=== PATIENT | female | born 1995 | race Caucasian/White ===

== ENCOUNTER 2021-04-05 19:17 | Emergency (ER) | payer OTHER, SELFPAY ==
[2021-04-05 19:18] VITALS: BP 130/76; PULSE 94; RESP 16; TEMP 36.7; O2SAT 98; BMI 29.1
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
[2021-04-05] MEDS: KETOROLAC 30 MG/ML VIAL IM (20:15)
[2021-04-05] MEDS: CYCLOBENZAPRINE 10 MG PREPACK 1 BOTTLE MISC (21:28)
[2021-04-05 21:30] VITALS: BP 118/75; PULSE 80; RESP 16; O2SAT 100
== END 2021-04-05 21:34 | disposition home or self-care (01) ==
PROVIDERS: Emergency Provider Emergency Medicine
DX: S16.1XXA Strain of muscle, fascia and tendon at neck level, initial encounter (principal); V89.2XXA Person injured in unspecified motor-vehicle accident, traffic, initial encounter
CPT/HCPCS: 72125; 73030; 81025; 96372; 99284; J1885

== ENCOUNTER 2022-02-26 05:07 | Emergency (ER) | payer OTHER, SELFPAY ==
--- NOTE | 2022-02-26 05:11 | ED_ITS ---
HPI - Back Pain/Injury General Chief Complaint: Back Pain/Injury Stated Complaint: severe lower back pain shooting lower right leg Time Seen by Provider: 02/26/22 05:11 History of Present Illness HPI Narrative: 26F nonsmoker without any significant medical problem presents with her signi ficant other and a chief complaint of gradually worsening low back pain with radiation down her right leg over the past few days. She denies any specific traumatic event but states that [place] and symptoms started ramping up a few days ago. She is had increased severity each night and was awoken this morning at about 2:00 a.m. with severe pain as stated. Her discomfort is significantly worse when she moves and improves with rest. She denies any fever or chills and takes no blood thinners. She has not lost control of her bowel or bladder and denies any lower extremity weakness or foot drop Related Data Previous Rx's Medication Instructions Recorded cyclobenzaprine 5 mg tablet 5 mg PO TID PRN muscle spasm #10 04/05/21 tabs cyclobenzaprine 10 mg tablet 10 mg PO TID PRN muscle spasm #14 02/26/22 tabs gabapentin 300 mg capsule 300 mg PO BEDTIME #14 caps 02/26/22 hydrocodone 5 mg-acetaminophen 325 1 tab PO Q4-6H PRN pain #10 tabs 02/26/22 mg tablet ketorolac 10 mg tablet 10 mg PO Q6H PRN pain #14 tabs 02/26/22 methylprednisolone 4 mg tablets in See Rx Instructions PO .COMPLEX 02/26/22 a dose pack (Medrol (Beck)) #21 ea Allergies Allergy/AdvReac Type Severity Reaction Status Date / Time No Known Drug Allergies Allergy Verified 04/05/21 19:29 Review of Systems Review of Systems Narrative: GENERAL: Denies chills, fatigue, malaise, fever, sweats. HEENT: Denies sinus pain, ear pain, sore throat, difficulty swallowing, dizziness. RESPIRATORY: Denies dyspnea, cough, wheezing, hemoptysis, sputum. CARDIOVASCULAR: Denies chest pain, palpitations, orthopnea, edema, GASTROINTESTINAL: Denies nausea, vomiting, abdominal pain, diarrhea, constipation, melena. : Denies dysuria, frequency, incontinence, hematuria, urinary retention. MUSCULOSKELETAL: See HPI SKIN: Denies rash, skin lesions, or other NEUROLOGIC: See HPI PSYCHIATRIC: No concerning psychosocial issues. 12 point review of systems is negative except for those stated above Patient History Social History Smoking Status: Never smoker Smoking Status: Never smoker alcohol intake frequency: 0-2 drinks per day Substance Use Type: does not use Exam Narrative Exam Narrative: GENERAL: [26] year old patient appears stated age. Well-developed patient, in mild distress. Obviously in pain walking with antalgic gait HEAD: Atraumatic. Normocephalic. EYES: Pupils equal round and reactive. Extraocular motions intact. No scleral icterus. No injection or drainage. ENT: Nose without bleeding, purulent drainage. Throat without erythema, tonsillar hypertrophy or exudate. Airway patent. NECK: Trachea midline. Non tender CARDIOVASCULAR: Regular rate and rhythm without murmurs, gallops, or rubs. RESPIRATORY: Clear to auscultation. Breath sounds equal bilaterally. No wheezes, rales, or rhonchi. GASTROINTESTINAL: Abdomen soft, non-tender, nondistended. EXTREMITIES: No edema or joint tenderness. BACK: peel oven tender but free of any obvious external abnormalities. Patient exam notes decreased range of motion and muscle spasm, but no CVA tenderness, or vertebral point tenderness. There are no symptoms of cauda equina such as saddle anesthesia, and decreased reflexes, decreased sensation or strength. NEURO: AOx3. SKIN: No rash or erythema of visible areas Initial Vital Signs Initial Vital Signs: Vital Signs Temperature 98.7 F 02/26/22 05:16 Pulse Rate 89 02/26/22 05:16 Respiratory Rate 16 02/26/22 05:16 Blood Pressure 148/79 H 02/26/22 05:16 Pulse Oximetry 98 02/26/22 05:16 Oxygen Delivery Method 02/26/22 05:16 Course Orders Ordered: Discontinued Medications Cyclobenzaprine HCl (Cyclobenzaprine 10 Mg Prepack) 1 bottle MISC SEEINSTR ONE Stop: 02/26/22 05:45 Gabapentin (Gabapentin 300 Mg Capsule) 300 mg PO NOW ONE Stop: 02/26/22 05:45 Ketorolac Tromethamine (Ketorolac 30 Mg/Ml Vial) 30 mg IM NOW ONE Stop: 02/26/22 05:45 Prednisone (Prednisone 20 Mg Tablet) 40 mg PO NOW ONE Stop: 02/26/22 05:45 Vital Signs Vital signs: Vital Signs - 8 hr 02/26/22 05:16 Temperature 98.7 F Pulse Rate 89 Respiratory Rate 16 Blood Pressure 148/79 H Pulse Oximetry 98 Oxygen Delivery Method Room Air MDM - Back Pain/Injury Lab Data Labs: Point of Care Testing Test Results Negative Urine Dip Bedside Urine Glucose Negative Bedside Urine Bilirubin - Negative Bedside Urine Ketone - Negative Urine Specific [place] 1.020 Bedside Urine Occult Blood - Negative Bedside Urine pH 6.0 Bedside Urine Protein - Negative Bedside Urine Urobilinogen - Negative Bedside Urine Nitrite - Negative Bedside Urine Leukocytes - Negative Esterase MDM Narrative Medical decision making narrative: Multiple etiologies of back pain considered including; Epidural abscess, cauda equina, mass occupying lesion, and other considered, however no red flag symptoms consistent with neurosurgical emergency are readily apparent. We discussed Discharge Plan Departure Patient Disposition: Home Clinical Impression: Acute back pain with radiculopathy Instructions: DI for Lumbar Radiculopathy Activity Restrictions/Additional Instructions: *You have been diagnosed with [acute lumbar radiculopathy] *What to do: *Please continue to take your regular medications as directed. [x ] New medication prescriptions sent to your pharmacy: [[facility] ] [ ] New medication written as a paper prescription [ ] No new medications given *Please follow up with your primary care provider in 2-3 days, call for an appointment. Let them know you were seen in the Emergency Department and that we ask that you be seen in follow up. We will electronically transmit a record of today's note if your PCP is in our system *If you do not have a primary care provider please contact the [facility] Resource line at [phone]. They will ask some questions about your medical history and help get you set up with a doctor in the community. *Return to Emergency Department if you should have any new, worsening or concerning symptoms, such as [fever greater than 101 F, shaking chills, worsening pain, persistent vomiting or other bothersome symptoms] Prescriptions: New cyclobenzaprine 10 mg tablet 10 mg PO TID PRN (Reason: muscle spasm) Qty: 14 0RF hydrocodone-acetaminophen 5-325 mg tablet 1 tab PO Q4-6H PRN (Reason: pain) Qty: 10 0RF ketorolac 10 mg tablet 10 mg PO Q6H PRN (Reason: pain) Qty: 14 0RF gabapentin 300 mg capsule 300 mg PO BEDTIME Qty: 14 0RF methylprednisolone [Medrol (Beck)] 4 mg tablets,dose pack See Rx Instructions .ROUTE .COMPLEX Qty: 21 0RF Rx Instructions: orally per package directions No Action cyclobenzaprine 5 mg tablet 5 mg PO TID PRN (Reason: muscle spasm) Qty: 10 0RF Referrals: Katy Kapadia PA-C [Primary Care Provider] -
[2022-02-26 05:16] VITALS: BP 148/79; PULSE 89; RESP 16; TEMP 37.1; O2SAT 98; BMI 28.3
[2022-02-26] MEDS: CYCLOBENZAPRINE 10 MG PREPACK 1 BOTTLE MISC (05:59)
[2022-02-26] MEDS: HYDROCODONE/ACET 5/325 PREPACK 1 BOTTLE MISC (05:59)
[2022-02-26] MEDS: GABAPENTIN 300 MG CAPSULE PO (05:59)
[2022-02-26] MEDS: predniSONE 20 MG TABLET 40 MG PO (05:59)
[2022-02-26] MEDS: KETOROLAC 30 MG/ML VIAL IM (06:00)
[2022-02-26 06:50] VITALS: BP 125/69; PULSE 71; RESP 18; O2SAT 99
== END 2022-02-26 06:51 | disposition home or self-care (01) ==
PROVIDERS: Emergency Provider Emergency Medicine; PCP Physician Assistant Medical
DX: M54.16 Radiculopathy, lumbar region (principal)
CPT/HCPCS: 81003; 81025; 96372; 99283; J1885

== ENCOUNTER 2024-07-12 19:09 | Emergency (ER) | payer OTHER, SELFPAY ==
[2024-07-12] VITALS (7 sets, daily range): BP systolic 123–126; BP diastolic 76–95; PULSE 77–92; RESP 16–21; TEMP 36.3; O2SAT 97–100; BMI 30.7
--- NOTE | 2024-07-12 19:26 | EKG_ITS ---
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
--- NOTE | 2024-07-12 19:34 | ED_ITS ---
HPI - Nausea/Vomiting/Diarrhea General Chief complaint: Nausea/Vomiting/Diarrhea Stated complaint: Low Potassium, Elevated Lipase Time Seen by Provider: 07/12/24 19:16 Source: patient Mode of arrival: Ambulatory History of Present Illness HPI Narrative: 28-year-old female presents for evaluation of abnormal labs. She reports 5-6 days of nausea, vomiting, diarrhea. She was seen 2 days ago at [facility], where she received fluids and blood work. She was subsequently discharged home. She states that for about 24 hours she felt improved but had diarrhea again today. She called her doctor's office, who reviewed her labs from [place] and told her to come into the ER for low potassium and elevated lipase, concern for pancreatitis. Patient denies alcohol use, cigarette smoking, or even abdominal pain. States that she feels like she was very fatigued and overall with a brain fog. Related Data Previous Rx's Medication Instructions Recorded cyclobenzaprine 5 mg tablet 5 mg PO TID PRN muscle spasm #10 04/05/21 tabs cyclobenzaprine 10 mg tablet 10 mg PO TID PRN muscle spasm #14 02/26/22 tabs gabapentin 300 mg capsule 300 mg PO BEDTIME #14 caps 02/26/22 hydrocodone 5 mg-acetaminophen 325 1 tab PO Q4-6H PRN pain #10 tabs 02/26/22 mg tablet ketorolac 10 mg tablet 10 mg PO Q6H PRN pain #14 tabs 02/26/22 methylprednisolone 4 mg tablets in See Rx Instructions PO .COMPLEX 02/26/22 a dose pack (Medrol (Beck)) #21 ea Allergies Allergy/AdvReac Type Severity Reaction Status Date / Time No Known Drug Allergies Allergy Verified 04/05/21 19:29 Patient History Social History Smoking Status: Never smoker Smoking Status: Never smoker alcohol intake frequency: 0-2 drinks per day Exam Initial Vital Signs Initial Vital Signs: Vital Signs Temperature 97.4 F L 07/12/24 19:15 Pulse Rate 92 H 07/12/24 19:15 Respiratory Rate 20 07/12/24 19:15 Blood Pressure 123/80 07/12/24 19:15 Pulse Oximetry 100 07/12/24 19:15 Oxygen Delivery Method Room Air 07/12/24 19:15 Const: Awake, alert, no acute distress, nontoxic appearing Cardiac: regular rate, regular rhythm RESP: unlabored, clear bilaterally, no wheezing GI: Soft, nontender, nondistended Skin: Warm, Dry, intact, no rashes Neuro: AO x3, CN II-XII grossly intact, moves all extremities Course Orders Ordered: ED Orders 07/12/24 19:26 EKG-12 Lead Stat 07/12/24 19:37 CBC Auto Diff [Complete Blood Count AUTO DIFF] Stat CMP [Comprehensive Metabolic Panel] Stat Lactate (Lactic Acid) Stat Lipase Stat MAG [Magnesium] Stat 07/12/24 19:42 GI Panel (Film Array) Stat UA Complete [Urinalysis and Microscopic] Stat Vital Signs Vital signs: Vital Signs - 8 hr 07/12/24 19:15 07/12/24 19:59 07/12/24 20:00 Temperature 97.4 F L Pulse Rate 92 H 88 Respiratory Rate 20 20 Blood Pressure 123/80 126/95 H Pulse Oximetry 100 97 Oxygen Delivery Method Room Air 07/12/24 20:00 07/12/24 20:33 07/12/24 21:00 Temperature Pulse Rate 81 83 86 Respiratory Rate 21 18 Blood Pressure Pulse Oximetry 97 98 98 Oxygen Delivery Method 07/12/24 21:30 07/12/24 21:36 07/12/24 21:36 Temperature Pulse Rate 79 77 Respiratory Rate 16 18 Blood Pressure 123/76 Pulse Oximetry 99 Oxygen Delivery Method MDM - Nausea/Vomiting/Diarrhea Differential Diagnosis Differential diagnosis: Likely traveler's diarrhea, gastroenteritis and dehydration Lab Data 07/12/24 19:37 07/12/24 19:37 Labs: Lab Results 07/12/24 07/12/24 Range/Units 19:37 19:42 WBC 8.1 (4.5-11.0) X10^3/uL RBC 4.91 (4.0-5.2) X10^6/uL Hgb 14.4 (12.0-16.0) g/dL Hct 42.8 (36-46) % MCV 87.2 (80-100) fL MCH 29.3 (26-34) PG MCHC 33.6 (30-36) % RDW 12.9 (11.6-14.8) % Plt Count 318 (150-400) X10^3/uL Neut % (Auto) 60.1 (50-75) % Lymph % (Auto) 25.2 (25-40) % [place] % (Auto) 13.2 (3-14) % Eos % (Auto) 1.1 L (2-4) % Baso % (Auto) 0.4 (0-2) % Neut # (Auto) 4900 (1920-1376) /uL Lymph # (Auto) 2100 (6365-6607) /uL [place] # (Auto) 1100 H (0-900) /uL Eos # (Auto) 100 (0-450) /uL Baso # (Auto) 0 (0-100) /uL Sodium 135 L (137-145) mmol/L Potassium 3.6 (3.4-5.1) mmol/L Chloride 103 (98-107) mmol/L Carbon Dioxide 25 (22-32) mmol/L BUN 7 (7-17) mg/dL Creatinine 0.63 (0.52-1.04) mg/dL Estimated GFR > 60 (>60) mL/min BUN/Creatinine Ratio 11.1 (6-22) Glucose 93 (70-100) mg/dL Lactate 0.7 (0.7-2.1) mmol/L Calcium 8.8 (8.4-10.2) mg/dL Magnesium 2.0 (1.6-2.3) mg/dL Total Bilirubin 0.9 (0.2-1.3) mg/dL AST 117 H (14-36) IU/L ALT 158 H (<35) IU/L Alkaline Phosphatase 87 (38-126) U/L Total Protein 7.4 (6.3-8.2) g/dL Albumin 4.3 (3.5-5.0) g/dL Globulin 3.1 (1.7-4.1) g/dL Albumin/Globulin Ratio 1.4 (1.0-2.8) Lipase 133 (23-300) U/L Urine Color Yellow Urine Appearance Clear Urine pH 6.5 (4.5-8.0) Ur Specific [place] <=1.005 (1.000-1.035) Urine Protein Negative (Negative) Urine Glucose (UA) Negative (Negative) g/dL Urine Ketones Negative (NEGATIVE) Urine Occult Blood Negative (Negative) Urine Nitrate Negative (Negative) Urine Bilirubin Negative (NEGATIVE) Urine Urobilinogen 0.2 (0.2) E.U./dL Ur Leukocyte Esterase Negative (NEGATIVE) Urine RBC 0-1/hpf (0-5/HPF) Urine WBC 0-1/hpf (0-5/HPF) Ur Squamous Epith Cells 0-1 /hpf (0-5/HPF) Urine Bacteria Occasional (0-1) (None) Ur Culture Indicated? Cult not indicated Vol Urine Centrifuged 10ml (spun) Stl C. cayetanensis PCR Not detected (Not Detect) Stool Rotavirus (PCR) Not detected (Not Detect) Stool Adenovirus (PCR) Detected (Not Detect) Stool Astrovirus (PCR) Not detected (Not Detect) Stool Cryptosporidium PCR Not detected (Not Detect) Stl E.coli Shiga Tox PCR Not detected (Not Detect) St Sh/Enteroin Ecoli PCR Not detected (Not Detect) Stl Enterotoxigenic E PCR Not detected (Not Detect) Stool EPEC (PCR) Not detected (Not Detect) Stl E. histolytica PCR Not detected (Not Detect) Stool Giardia Lamblia PCR Not detected (Not Detect) Stool Sapovirus (PCR) Not detected (Not Detect) Stl P. shigelloides PCR Not detected (Not Detect) St Y.enterocolitica PCR Not detected (Not Detect) Stool Vibrio (PCR) Not detected (Not Detect) Stl Vibrio cholerae PCR Not detected (Not Detect) Stl Enteroaggr Ecoli PCR Not detected (Not Detect) Stl Norovirus GI/GII PCR Not detected (Not Detect) Campylobacter (PCR) Not detected (Not Detect) C. difficile Tox (PCR) Not detected (Not Detect) Salmonella (PCR) Not detected (Not Detect) MDM Narrative Medical decision making narrative: Well appearing patient with the above symptoms. We were able to obtain records from [facility], that showed a potassium of 3.4 and a lipase of 54, which are barely outside the assay limit range of normal. Abdomen soft, nontender to palpation. I have no clinical suspicion for pancreatitis at this time. Repeat laboratory work shows normal potassium and normal lipase. Patient was noted to have mild transaminitis on her last visit, which is stable today (AST 131, ALT 152 on 07/10 at [facility], AST 117 adn ALT 158 today). GI panel positive for adenovirus. So this is likely viral gastroenteritis and should be resolving within the next several days. Patient informed of lab results and GI panel results. She was advised to continue to stay hydrated and drink plenty of fluids. She was Zofran at home it was prescribed at her last ER visit. She was informed of her stable liver enzymes and encouraged PCP follow up once her GI illness and to make sure that her liver enzymes go back to normal. Discharge Plan Departure Patient Disposition: Home Clinical Impression: Gastroenteritis Instructions: DI for Viral Gastroenteritis -- Adult Activity Restrictions/Additional Instructions: Your laboratory work today showed a normal lipase and normal potassium. Your liver enzymes are still elevated, but not much different than when you were at [place]. Your stool panel was positive for adenovirus, which is an upper respiratory virus that can cause diarrhea. This is usually self-limiting and I anticipate that your symptoms will get better over the next several days. Use the Zofran you were previously prescribed for nausea and vomiting. Make sure that you stay hydrated and drink plenty of fluids. Prescriptions: No Action cyclobenzaprine 5 mg tablet 5 mg PO TID PRN (Reason: muscle spasm) Qty: 10 0RF cyclobenzaprine 10 mg tablet 10 mg PO TID PRN (Reason: muscle spasm) Qty: 14 0RF hydrocodone-acetaminophen 5-325 mg tablet 1 tab PO Q4-6H PRN (Reason: pain) Qty: 10 0RF ketorolac 10 mg tablet 10 mg PO Q6H PRN (Reason: pain) Qty: 14 0RF gabapentin 300 mg capsule 300 mg PO BEDTIME Qty: 14 0RF methylprednisolone [Medrol (Beck)] 4 mg tablets,dose pack See Rx Instructions .ROUTE .COMPLEX Qty: 21 0RF Rx Instructions: orally per package directions Referrals: Katy Kapadia PA-C [Primary Care Provider] - Stand Alone Forms: Patient Portal/API/Survey, Work Release Note
[2024-07-12 19:55] LABS: Add Manual Diff / Slide Review NO; Basophils Absolute Auto 0 /uL (0-100); Basophils Percent Auto 0.4 % (0-2); Eosinophils Absolute Auto 100 /uL (0-450); Eosinophils Percent Auto 1.1 % (2-4); Hematocrit 42.8 % (36-46); Hemoglobin 14.4 g/dL (12.0-16.0); Lymphocytes Absolute Auto 2100 /uL (1100-4500); Lymphocytes Percent Auto 25.2 % (25-40); Mean Corpuscular HGB Conc 33.6 % (30-36); Mean Corpuscular Hemoglobin 29.3 PG (26-34); Mean Corpuscular Volume 87.2 fL (80-100); Monocytes Absolute Auto 1100 /uL (0-900); Monocytes Percent Auto 13.2 % (3-14); Neutrophils Absolute Auto 4900 /uL (1500-7000); Neutrophils Percent Auto 60.1 % (50-75); Platelet Count 318 X10^3/uL (150-400); Red Blood Cell Count 4.91 X10^6/uL (4.0-5.2); Red Cell Distribution Width 12.9 % (11.6-14.8); White Blood Cell Count 8.1 X10^3/uL (4.5-11.0)
[2024-07-12 19:57] LABS: Appearance Urine UA CLEAR; Bilirubin Urine UA NEGATIVE (NEGATIVE); Color Urine UA YELLOW; Glucose Urine UA NEGATIVE (Negative); Ketones Urine UA NEGATIVE (NEGATIVE); Leukocyte Esterase Urine UA NEGATIVE (NEGATIVE); Nitrite Urine UA NEGATIVE (Negative); Occult Blood Urine UA NEGATIVE (Negative); Protein Urine UA NEGATIVE (Negative); Specific Gravity Urine UA <=1.005 (1.000-1.035); Urobilinogen Urine UA 0.2 E.U./dL (0.2)
[2024-07-12 20:00] LABS: pH Urine UA 6.5 (4.5-8.0)
[2024-07-12 20:05] LABS: Bacteria Urine Occasional (0-1); Culture Indicated Urine Cult Not Indicated; RBC Urine 0-1/HPF (0-5/HPF); Squamous Epithelial Cell Urine 0-1 /HPF (0-5/HPF); Urine Volume 10mL (spun); WBC Urine 0-1/HPF (0-5/HPF)
[2024-07-12 20:10] LABS: Lactate (Lactic Acid) 0.7 mmol/L (0.7-2.1)
[2024-07-12 20:11] LABS: Alanine Aminotransferase 158 IU/L (<35); Albumin 4.3 g/dL (3.5-5.0); Albumin Globulin Ratio 1.4 (1.0-2.8); Alkaline Phosphatase 87 U/L (38-126); Aspartate Aminotransferase 117 IU/L (14-36); BUN Creatinine Ratio 11.1 (6-22); Bilirubin Total 0.9 mg/dL (0.2-1.3); Blood Urea Nitrogen 7 mg/dL (7-17); Calcium 8.8 mg/dL (8.4-10.2); Carbon Dioxide 25 mmol/L (22-32); Chloride 103 mmol/L (98-107); Estimated Glomerular Filt Rate > 60 mL/min (>60); Globulin 3.1 g/dL (1.7-4.1); Glucose 93 mg/dL (70-100); HEMOLYSIS 22 (0-50); Lipase 133 U/L (23-300); Potassium 3.6 mmol/L (3.4-5.1); Sodium 135 mmol/L (137-145); Total Protein 7.4 g/dL (6.3-8.2)
[2024-07-12 21:15] LABS: Adenovirus F 40/41 Detected (Not Detect); Astrovirus Not Detected (Not Detect); Campylobacter Not Detected (Not Detect); Clostridium difficile toxin AB Not Detected (Not Detect); Cryptosporidium Not Detected (Not Detect); Cyclospora cayetanensis Not Detected (Not Detect); Entamoeba histolytica Not Detected (Not Detect); Enteroaggregative E.coli Not Detected (Not Detect); Enteropathogenic E.coli Not Detected (Not Detect); Enterotoxigenic E.coli It/st Not Detected (Not Detect); Giardia lamblia Not Detected (Not Detect); Norovirus GI/GII Not Detected (Not Detect); Plesiomonsa shigelloides Not Detected (Not Detect); Rotavirus A Not Detected (Not Detect); Salmonella Not Detected (Not Detect); Sapovirus Not Detected (Not Detect); Shiga-like toxin-prod E.coli Not Detected (Not Detect); Shigella/Enteroinvasive E.coli Not Detected (Not Detect); Vibrio Not Detected (Not Detect); Vibrio cholerae Not Detected (Not Detect); Yersinia enterocolitica Not Detected (Not Detect)
== END 2024-07-12 21:43 | disposition home or self-care (01) ==
PROVIDERS: Emergency Provider Emergency Medicine; PCP Physician Assistant Medical
DX: K52.9 Noninfective gastroenteritis and colitis, unspecified (principal); R07.9 Chest pain, unspecified
CPT/HCPCS: 36415; 80053; 81001; 83605; 83690; 83735; 85025; 87507; 93005; 99283; 99284

== ENCOUNTER 2024-10-11 10:46 | Emergency (ER) | payer OTHER, SELFPAY ==
[2024-10-11 10:50] VITALS: BP 116/77; PULSE 86; RESP 13; TEMP 36.1; O2SAT 99; BMI 31.6
[2024-10-11 11:23] LABS: Ictotest Urine Negative (Negative)
--- NOTE | 2024-10-11 12:30 | ED_ITS ---
HPI - Back Pain/Injury <Brandy Barrios PA-C - Last Filed: 10/11/24 14:39> General Chief Complaint: Back Pain/Injury Stated Complaint: Back pain Time Seen by Provider: 10/11/24 11:27 Source: patient History of Present Illness HPI Narrative: 29-year-old female presents to the ED with 2 days of muscle spasms and pain in the right lower back, with pain traveling down her right leg. Patient denies numbness, tingling, weakness. No saddle paresthesias. No fever, chills. No urinary hesitancy, urinary incontinence, bowel incontinence. No footdrop. Patient states that she tried to sampler pickup her child yesterday when her pain was exacerbated. Patient endorses that she has had several flares of this back pain periodically over the last several years. Related Data Previous Rx's Medication Instructions Recorded cyclobenzaprine 5 mg tablet 5 mg PO TID PRN muscle spasm #10 04/05/21 tabs cyclobenzaprine 10 mg tablet 10 mg PO TID PRN muscle spasm #14 02/26/22 tabs gabapentin 300 mg capsule 300 mg PO BEDTIME #14 caps 02/26/22 hydrocodone 5 mg-acetaminophen 325 1 tab PO Q4-6H PRN pain #10 tabs 02/26/22 mg tablet ketorolac 10 mg tablet 10 mg PO Q6H PRN pain #14 tabs 02/26/22 methylprednisolone 4 mg tablets in See Rx Instructions PO .COMPLEX 02/26/22 a dose pack (Medrol (Beck)) #21 ea cyclobenzaprine 10 mg tablet 10 mg PO TID PRN muscle spasm 5 10/11/24 days #15 tabs Allergies Allergy/AdvReac Type Severity Reaction Status Date / Time No Known Drug Allergies Allergy Verified 10/11/24 10:50 Review of Systems <Brandy Barrios PA-C - Last Filed: 10/11/24 14:39> Constitutional Constitutional: Denies chills, Denies fatigue, Denies fever(s), Denies frequent falls, Denies lethargy and Denies weakness Eyes Eyes: Denies change in vision, Denies eye discharge, Denies irritation and Denies loss of vision ENT Ears, Nose, Mouth, and Throat: Denies change in voice, Denies dizziness, Denies neck pain, Denies sore throat and Denies throat swelling Cardiovascular Cardiovascular: Denies chest pain, Denies irregular heart rhythm, Denies lightheadedness, Denies palpitations, Denies dyspnea, Denies dyspnea on exertion and Denies orthopnea Respiratory Respiratory: Denies cough, Denies dyspnea, Denies dyspnea on exertion and Denies wheezing Gastrointestinal Gastrointestinal: Denies abdominal pain, Denies change in bowel habits, Denies diarrhea, Denies nausea and Denies vomiting Musculoskeletal Musculoskeletal: Reports back pain, Denies neck pain, Denies numbness and Reports radiating pain into limb Integumentary/Breasts Skin/Breast: Denies pruritus, Denies erythema, Denies rash and Denies wounds Neurologic Neurologic: Denies behavioral changes, Denies confusion, Denies dizziness, Denies frequent falls, Denies loss of vision, Denies numbness and Denies weakness Psychiatric Psychiatric: Denies anxiety, Denies behavioral changes, Denies confusion, Denies depression, Denies homicidal ideation and Denies suicidal ideation Endocrine Endocrine: Denies fatigue, Denies flushing and Denies palpitations Hematologic/Lymphatic Hematologic/Lymphatic: Denies easy bruising Allergic/Immunologic Allergic/Immunologic: Denies urticaria, Denies throat swelling and Denies wheezing Patient History <Brandy Barrios PA-C - Last Filed: 10/11/24 14:39> Social History Smoking Status: Never smoker Smoking Status: Never smoker alcohol intake frequency: 0-2 drinks per day Exam <Brandy Barrios PA-C - Last Filed: 10/11/24 14:39> Narrative Exam Narrative: Const General:?cooperative, healthy appearing and comfortable [facility] Head:?normal to inspection Ears:?hearing grossly normal bilaterally Nose:?external nose normal Face and sinus:?normal facial exam and sinuses nontender Mouth:?oral mucosae normal Throat:?posterior oropharynx normal Eyes General:?appearance normal, both eyes and all related structures Neck Neck:?normal visual inspection and no lymphadenopathy noted Resp Effort & Inspection:?normal respiratory effort Auscultation:?clear to auscultation bilaterally Cardio Rate:?regular rate Rhythm:?regular rhythm Musculoskeletal No midline tenderness to palpation. No paraspinal tenderness to palpation. Patient is able to walk, although painful. Neurovascularly intact. Neuro General:?patient alert, patient awake and patient oriented x3 Initial Vital Signs Initial Vital Signs: Vital Signs Temperature 97.0 F L 10/11/24 10:50 Pulse Rate 86 10/11/24 10:50 Respiratory Rate 13 10/11/24 10:50 Blood Pressure 116/77 10/11/24 10:50 Pulse Oximetry 99 10/11/24 10:50 Oxygen Delivery Method Room Air 10/11/24 10:50 <Kulwinder Tan MD - Last Filed: 10/12/24 07:48> Initial Vital Signs Initial Vital Signs: Vital Signs Temperature 97.0 F L 10/11/24 10:50 Pulse Rate 86 10/11/24 10:50 Respiratory Rate 13 10/11/24 10:50 Blood Pressure 116/77 10/11/24 10:50 Pulse Oximetry 99 10/11/24 10:50 Oxygen Delivery Method Room Air 10/11/24 10:50 Course <Brandy Barrios PA-C - Last Filed: 10/11/24 14:39> Orders Ordered: Discontinued Medications Acetaminophen (Acetaminophen 325 Mg Tablet) 975 mg PO NOW ONE Stop: 10/11/24 12:42 Last Admin: 10/11/24 12:51 Dose: 975 mg Documented By: YINA Cyclobenzaprine HCl (Cyclobenzaprine 10 Mg Tablet) 10 mg PO NOW ONE Stop: 10/11/24 12:42 Last Admin: 10/11/24 12:51 Dose: 10 mg Documented By: YINA Ketorolac Tromethamine (Ketorolac 30 Mg/Ml Vial) 30 mg IM NOW ONE Stop: 10/11/24 12:42 Last Admin: 10/11/24 12:51 Dose: 30 mg Documented By: YINA Vital Signs Vital signs: Vital Signs - 8 hr 10/11/24 10:50 Temperature 97.0 F L Pulse Rate 86 Respiratory Rate 13 Blood Pressure 116/77 Pulse Oximetry 99 Oxygen Delivery Method Room Air <Kulwinder Tan MD - Last Filed: 10/12/24 07:48> Orders Ordered: Discontinued Medications Acetaminophen (Acetaminophen 325 Mg Tablet) 975 mg PO NOW ONE Stop: 10/11/24 12:42 Last Admin: 10/11/24 12:51 Dose: 975 mg Documented By: YINA Cyclobenzaprine HCl (Cyclobenzaprine 10 Mg Tablet) 10 mg PO NOW ONE Stop: 10/11/24 12:42 Last Admin: 10/11/24 12:51 Dose: 10 mg Documented By: YINA Ketorolac Tromethamine (Ketorolac 30 Mg/Ml Vial) 30 mg IM NOW ONE Stop: 10/11/24 12:42 Last Admin: 10/11/24 12:51 Dose: 30 mg Documented By: YINA Vital Signs Vital signs: Vital Signs - 8 hr 10/11/24 10:50 Temperature 97.0 F L Pulse Rate 86 Respiratory Rate 13 Blood Pressure 116/77 Pulse Oximetry 99 Oxygen Delivery Method Room Air MDM - Back Pain/Injury <Brandy Barrios PA-C - Last Filed: 10/11/24 14:39> Lab Data Labs: Lab Results 10/11/24 Range/Units 10:54 Ur Bilirubin Confirm Negative (Negative) Point of Care Testing Test Results Negative Urine Dip Bedside Urine Glucose Negative Bedside Urine Bilirubin + 1 Bedside Urine Ketone - Negative Urine Specific [place] 1.025 Bedside Urine Occult Blood - Negative Bedside Urine pH 6.0 Bedside Urine Protein +/- 15 Bedside Urine Urobilinogen - Negative Bedside Urine Nitrite - Negative Bedside Urine Leukocytes - Negative Esterase MDM Narrative Medical decision making narrative: 29-year-old female presents to the ED with 2 days of muscle spasms and pain in the right lower back, with pain traveling down her right leg. Physical exam is reassuring for no midline tenderness to palpation. Patient appears neurologically and neurovascularly intact. No saddle paresthesias, urinary hesitancy. Patient given a dose of Toradol, Tylenol, Flexeril. Prescribed Flexeril. Recommend continuing Tylenol, ibuprofen at home. Recommend lidocaine patches, heat/ice. Recommend follow-up with PCP for further evaluation and physical therapy referrals. ED return precautions discussed with patient. Patient verbalized understanding. Medical records reviewed: Yes <Kulwinder Tan MD - Last Filed: 10/12/24 07:48> Lab Data Labs: Lab Results 10/11/24 Range/Units 10:54 Ur Bilirubin Confirm Negative (Negative) Point of Care Testing Test Results Negative Urine Dip Bedside Urine Glucose Negative Bedside Urine Bilirubin + 1 Bedside Urine Ketone - Negative Urine Specific [place] 1.025 Bedside Urine Occult Blood - Negative Bedside Urine pH 6.0 Bedside Urine Protein +/- 15 Bedside Urine Urobilinogen - Negative Bedside Urine Nitrite - Negative Bedside Urine Leukocytes - Negative Esterase Discharge Plan Departure Patient Disposition: Home Clinical Impression: Strain of lumbar region Qualifiers: Encounter type: initial encounter Qualified Code(s): S39.012A - Strain of muscle, fascia and tendon of lower back, initial encounter Instructions: DI for Back Pain With Sciatica Activity Restrictions/Additional Instructions: You were evaluated in the ED today for lower back pain. It appears that you have a strain of the lower back that is causing your symptoms. You were given Tylenol, Flexeril and injection of Toradol. Please continue to take 800 mg of ibuprofen every 8 hours with food. You may also take 1000 mg of Tylenol every 8 hours. You may continue to apply lidocaine patches. Please follow-up with your primary care doctor as soon as possible for further evaluation and physical therapy referrals. Return to the ED if you have worsening symptoms, urinary difficulties. Prescriptions: New cyclobenzaprine 10 mg tablet 10 mg PO TID PRN (Reason: muscle spasm) 5 Days Qty: 15 0RF No Action cyclobenzaprine 5 mg tablet 5 mg PO TID PRN (Reason: muscle spasm) Qty: 10 0RF cyclobenzaprine 10 mg tablet 10 mg PO TID PRN (Reason: muscle spasm) Qty: 14 0RF hydrocodone-acetaminophen 5-325 mg tablet 1 tab PO Q4-6H PRN (Reason: pain) Qty: 10 0RF ketorolac 10 mg tablet 10 mg PO Q6H PRN (Reason: pain) Qty: 14 0RF gabapentin 300 mg capsule 300 mg PO BEDTIME Qty: 14 0RF methylprednisolone [Medrol (Beck)] 4 mg tablets,dose pack See Rx Instructions .ROUTE .COMPLEX Qty: 21 0RF Rx Instructions: orally per package directions Referrals: Katy Kapadia PA-C [Primary Care Provider] - Stand Alone Forms: Patient Portal/API/Survey, Work Release Note ED Sign-out <Kulwinder Tan MD - Last Filed: 10/12/24 07:48> Cosign ED Attending Marisela Attestation: I was immediately available in the department for consultation. ?This documentation has been reviewed and I agree with assessment and plan. Supervised by Kulwinder Tan MD
[2024-10-11] MEDS: ACETAMINOPHEN 325 MG TABLET 975 MG PO (12:51)
[2024-10-11] MEDS: CYCLOBENZAPRINE 10 MG TABLET PO (12:51)
[2024-10-11] MEDS: KETOROLAC 30 MG/ML VIAL IM (12:51)
== END 2024-10-11 13:00 | disposition home or self-care (01) ==
PROVIDERS: Emergency Medicine; Emergency Provider Student in an Organized Health Care Education/Training Program; PCP Physician Assistant Medical
DX: S39.012A Strain of muscle, fascia and tendon of lower back, initial encounter (principal); M62.830 Muscle spasm of back
CPT/HCPCS: 81003; 81025; 96372; 99283; J1885